=== PATIENT | female | born 1985 | race Caucasian/White ===

== ENCOUNTER 2017-12-03 18:15 | Emergency (ER) | payer MEDICAID ==
[2017-12-03 18:16] VITALS: BMI 28.4
[2017-12-03 18:22] VITALS: RESP 20
[2017-12-03] MEDS ORDERED: Sodium Chloride 0.9% 1,000 ML IV ONE (18:45)
[2017-12-03] MEDS ORDERED: Albuterol-Ipratrop 3 mg / 0.5 (3 ml) UD IH STA ×2 (18:46→20:16)
[2017-12-03] MEDS ORDERED: Sodium Chloride 0.9% 1,000 ML ONE (18:55)
[2017-12-03] MEDS ORDERED: Albuterol-Ipratrop 3 mg / 0.5 (3 ml) UD ONE ×2 (18:57→20:22)
[2017-12-03 19:36] LABS: BASO # 0.1 K/uL (0.0-0.2); BASO % 0.7 % (0.0-2.0); EOS # 0.3 K/uL (0.0-0.7); EOS % 3.2 % (0.0-4.0); HEMOGLOBIN 14.5 g/dL (11.0-16.0); LYMPH # 2.7 K/uL (1.0-4.3); LYMPH % 34.5 % (20.0-40.0); MEAN CELL VOLUME 89.4 fL (81.0-99.0); MEAN CORPUSCULAR HEMOGLOBIN 30.9 pg (27.0-31.0); MEAN CORPUSCULAR HGB CONC 34.5 g/dL (33.0-37.0); MEAN PLATELET VOLUME 8.1 fL (7.2-11.7); MONO # 0.5 K/uL (0.0-0.8); MONO % 6.7 % (0.0-10.0); NEUT # 4.4 K/uL (1.8-7.0); NEUT % 54.9 % (50.0-75.0); NRBC % 0.1 % (0.0-2.0); RBC 4.68 Mil/uL (3.80-5.20); RED CELL DISTRIBUTION WIDTH 13.7 % (11.5-14.5); WHITE BLOOD COUNT 7.9 K/uL (4.8-10.8)
[2017-12-03 19:49] LABS: ALB/GLOB RATIO 1.2 (1.0-2.1); ALBUMIN 4.3 g/dL (3.5-5.0); ALT/SGPT 16 U/L (9-52); AST/SGOT 23 U/L (14-36); BLOOD UREA NITROGEN 11 mg/dL (7-17); CALCIUM 9.2 mg/dl (8.6-10.4); GFR AFRICAN-AMERICAN > 60; GFR NON-AFRICAN AMERICAN > 60; LIPASE 112 U/L (23-300)
[2017-12-03 19:58] LABS: SQUAMOUS EPITHIAL 4 /hpf (0-5); URINE BACTERIA OCC (<OCC); URINE BILIRUBIN NEGATIVE (NEGATIVE); URINE BLOOD NEGATIVE (NEGATIVE); URINE CLARITY Clear (Clear); URINE COLOR Colorless (YELLOW); URINE GLUCOSE (UA) NORMAL (Normal); URINE LEUKOCYTE ESTERASE 1+ Leu/uL (Negative); URINE PROTEIN NEGATIVE (NEGATIVE); URINE UROBILINOGEN NORMAL mg/dL (0.2-1.0)
[2017-12-03 20:00] LABS: HCG,QUALITATIVE URINE NEGATIVE (NEGATIVE)
[2017-12-03 20:15] VITALS: TEMP 98.4
--- NOTE | 2017-12-03 20:19 | C.PDOC ---
Time Seen by Provider: 12/03/17 18:44 Chief Complaint (Nursing): Cough, Cold, Congestion History Per: Patient Onset/Duration Of Symptoms: Days (about 1 week) Current Symptoms Are (Timing): Still Present Associated Symptoms: Sore Throat, Cough, Nasal Congestion, Nausea Severity: Moderate Additional History Per: Prior Records Past Medical History Reviewed: Historical Data, Nursing Documentation, Vital Signs Vital Signs: Last Vital Signs Temp 98.4 F 12/03/17 19:41 Pulse 100 H 12/03/17 19:41 Resp 20 12/03/17 19:41 BP 111/62 12/03/17 19:41 Pulse Ox 97 12/03/17 20:19 - Medical History PMH: No Chronic Diseases, Fractures (RIGHT ANKLE) - [facility] Procedures REPAIR OB LACERATION NEC (04/14/13) Family History: States: Unknown Family Hx - Social History Hx Tobacco Use: No Hx Alcohol Use: No Hx Substance Use: No - Immunization History Hx Tetanus Toxoid Vaccination: No Hx Influenza Vaccination: No Hx Pneumococcal Vaccination: No Review Of Systems Except As Marked, All Systems Reviewed And Found Negative. Constitutional: Negative for: Fever ENT: Positive for: Nose Congestion, Throat Pain Cardiovascular: Negative for: Chest Pain Respiratory: Positive for: Cough, Shortness of Breath, Wheezing. Negative for: Hemoptysis Gastrointestinal: Positive for: Abdominal Pain (epigastric) Genitourinary: Negative for: Dysuria Musculoskeletal: Negative for: Neck Pain, Back Pain, Leg Pain Skin: Negative for: Rash Neurological: Negative for: Weakness, Numbness Physical Exam - Physical Exam Appears: Non-toxic, No Acute Distress Skin: Normal Color, Warm, Dry, No Rash Head: Atraumatic, Normacephalic Eye(s): bilateral: Normal Inspection, PERRL, EOMI Throat: Erythema, No Exudate, No Drooling, No Mass Neck: Normal ROM, Supple Lymphatic: No Adenopathy Cardiovascular: Rhythm Regular Respiratory: No Accessory Muscle Use, Wheezing Gastrointestinal/Abdominal: Soft, No Tenderness Back: No CVA Tenderness Extremity: Normal ROM, No Pedal Edema, No Calf Tenderness Neurological/Psych: Oriented x3, No Normal Speech (mildly hoarse voice), Normal Motor, Normal Sensation ED Course And Treatment - Laboratory Results Result Diagrams: 12/03/17 19:09 12/03/17 19:09 Lab Interpretation: No Acute Changes Urine POC: Negative O2 Sat by Pulse Oximetry: 97 Pulse Ox Interpretation: Normal - Radiology CXR Interpretation: Yes: Heart Size (wnl), Other (increased interstitial markings) Progress Note: Pt feels much better and wants to go home. Reassessment Condition: Improved Progress - Interventions Interventions:: Observation, Intravenous fluid - Medications Administered Oral: Antiemetic, Corticosteriod Inhaled nebulized: Anticholinergic, Beta-2 agonist Intravenous: H-2 maximus, NSAID - Data Reviewed Data Reviewed: Lab, Diagnostic imaging, Old records - Patient Status Patient status: Mostly improved - Continuity of Care Discussed patient case with:: Patient, ED Nurse - Patient Plan Patient Plan: Discharge, F/U with PCP Disposition Counseled Patient/Family Regarding: Studies Performed, Diagnosis, Need For Followup, Rx Given - Disposition Disposition: HOME/ ROUTINE Disposition Time: 20:29 Condition: IMPROVED Additional Instructions: Follow up with your doctor within 2-3 days. Return to the ER if you develop shortness of breath, high fever, lethargy, worsening of symptoms or if you have any other concerns. Prescriptions: Albuterol HFA [Ventolin HFA 90 mcg/actuation (8 g)] 2 puff IH Q4 PRN #1 unit PRN Reason: Wheezing Azithromycin [Zithromax] 1 dose PO DAILY #1 pkt predniSONE [predniSONE Tab] 2 tab PO DAILY #8 tab Instructions: Acute Bronchitis, Adult (DC) Forms: [email or web address] ([place]) Print Language: S[place]ORE[place] - Clinical Impression Clinical Impression: Acute wheezy bronchitis
[2017-12-03 20:35] VITALS: BP 115/56; PULSE 86; O2SAT 98
--- NOTE | 2017-12-04 08:46 | RAD ---
HISTORY: Cough COMPARISON: No prior. TECHNIQUE: Chest PA and lateral FINDINGS: LUNGS: No active pulmonary disease. PLEURA: No significant pleural effusion identified. No pneumothorax apparent. CARDIOVASCULAR: Normal. OSSEOUS STRUCTURES: No significant abnormalities. VISUALIZED UPPER ABDOMEN: Normal. OTHER FINDINGS: None. IMPRESSION: No radiographic evidence of pneumonia.
== END 2017-12-03 20:43 | disposition home or self-care (01) ==
LOC: C.ER 18:15
DX: J20.9 Acute bronchitis, unspecified (principal)
CPT/HCPCS: 71046; 80053; 81001; 83690; 84703; 85025; 87804; 94640; 96361; 96374; 96375; 99285; J1885; J7040

== ENCOUNTER 2018-05-26 08:48 | Day surgery (SDC) | payer MEDICAID ==
[2018-05-26 09:11] VITALS: BMI 27.4
[2018-05-26] MEDS ORDERED: ceFAZolin 1 gm in NS 1 GM/100 ML BAG IVPB ONE (09:49)
[2018-05-26] MEDS ORDERED: Lidocaine/Epinephrine 1% 1:100000 10 ML IJ ONE (09:49)
[2018-05-26] MEDS ORDERED: Propofol 10 mg/ml Inj (20 ML) ONE (09:55)
[2018-05-26] MEDS ORDERED: Succinylcholine Chloride 20 mg/ml Syr (5 ml) IV ONE (09:56)
[2018-05-26] MEDS ORDERED: Dextrose 5%/0.45% NS 1,000 ML IV SCH (10:00)
[2018-05-26] MEDS ORDERED: Lidocaine Hydrochloride 5 ML INJ ONE (10:07)
[2018-05-26] MEDS ORDERED: Lactated Ringer's 1,000 ML IV SCH (10:45)
[2018-05-26] MEDS ORDERED: Acetaminophen-Codeine 300/30 mg Tab PO PRN (14:03)
[2018-05-26 14:21] VITALS: BP 102/84; PULSE 75; RESP 18; TEMP 98; O2SAT 98
--- NOTE | 2018-05-26 21:08 | OP ---
PROCEDURE DATE: 05/26/2018 PREOPERATIVE DIAGNOSIS: vocal cord polyp. POSTOPERATIVE DIAGNOSIS: vocal cord polyp. PROCEDURE: Micro direct laryngoscopy with removal of polyps. SIGNIFICANT FINDINGS: Polyps on the right and left vocal cords. PROCEDURE: The patient was brought into the room, placed in supine position, anesthesia was initiated through an ET tube. Shoulder roll was placed, neck extended. The patient was draped in usual manner. A tooth guard was placed over the upper teeth in order to protect them and remained there for the entire case, removed at the end. Direct laryngoscope was inserted to the oral cavity, passed to the oropharynx and hypopharynx. The base of tongue, vallecula, epiglottis, AE folds, false cords, true cords, piriform sinuses, pharyngeal ramsey, arytenoids were brought to view. Vocal cord polyps were noted on the both vocal cords, one on each side. The direct laryngoscope was suspended in the [employer] judge the usual manner. While viewing the vocal cords, the microscope was brought into position and used to view the vocal cords. Micro instruments were used to remove the vocal cord polyps of the vocal cords preserving as much mucosa as possible. Bleeding was controlled using cold water irrigation. Direct laryngoscope was taken off suspension and removed. The microscope was taken out of position. The patient was taken off anesthesia and taken to recovery room in stable manner. Chance Davis MD
== END 2018-05-26 13:20 | disposition home or self-care (01) ==
LOC: C.SDS 08:48
PROVIDERS: ATTEND Otolaryngology
DX: J38.1 Polyp of vocal cord and larynx (principal)
CPT/HCPCS: 31541; 88305; J0690; J2405; J2704; J3010